=== PATIENT | female | born 1995 | race Caucasian/White ===

== ENCOUNTER 2017-08-28 13:33 | Emergency (ER) | payer MEDICAID ==
--- NOTE | 2017-08-28 13:56 | Emergency Department Record ---
History of Present Illness - General Chief complaint: Nausea, Vomiting, Diarrhea Stated complaint: NAUSEA/ PAIN IN RIGHT BREAST Time Seen by Provider: 08/28/17 13:41 Source: Patient, Family Mode of Arrival: Ambulatory Limitations: No limitations - History of Present Illness Initial comments: The patient is here due to having a 2 week hx of intermittent nausea. It comes and goes and sometimes is worse after eating. She has been also have pain in her R breast and has a cyst present. The cyst she feels is getting larger and now more painful. She has been taking a lot of Motrin for it also for the last 2 weeks. The patient was in the last month for this and was told to come to the ER if not better. MD complaint: Nausea Onset/Timin -: Week(s) Severity: Mild Severity scale (1-10): 3 Quality: Aching Improves with: None Worsens with: None Associated Symptoms: Nausea/vomiting - Related Data Previous Rx's Medication Instructions Recorded Metoclopramide HCl [Reglan] 10 mg PO TID #20 tablet 08/28/17 Naproxen [Naprosyn] 250 mg PO BID #14 tablet 08/28/17 Sucralfate [Carafate] 1 gm PO QID #28 tablet 08/28/17 Allergies Allergy/AdvReac Type Severity Reaction Status Date / Time No Known Allergies Allergy no Verified 08/28/17 13:44 allergies Travel Screening - Travel/Exposure Within Last 30 Days Have you traveled within the last 30 days?: No Review of Systems Constitutional: Denies: Chills, Fever Past Medical History - SOCIAL HISTORY Smoking Status: Never smoker Alcohol Use: None Drug Use: None - RESPIRATORY Hx Respiratory Disorders: No - CARDIOVASCULAR Hx Cardio Disorders: No - NEURO Hx Neuro Disorders: No - GI Hx GI Disorders: No - Hx Genitourinary Disorders: No - ENDOCRINE Hx Endocrine Disorders: No - MUSCULOSKELETAL Hx Musculoskeletal Disorders: No - PSYCH Hx Psych Problems: No - HEMATOLOGY/ONCOLOGY Hx Hematology/Oncology Disorders: No Family Medical History Any Significant Family History?: No Physical Exam - General General Appearance: Alert, Oriented x3, Cooperative, No acute distress - Head Head exam: Atraumatic, Normocephalic, Normal inspection - Eye Eye exam: Normal appearance, PERRL - Neck Neck exam: Normal inspection, Full ROM. negative: Tenderness - Respiratory Respiratory exam: Normal lung sounds bilaterally. negative: Respiratory distress - Cardiovascular Cardiovascular Exam: Regular rate, Normal rhythm, Normal heart sounds, Other ( There is a < 1 cm mildly tender nodule under the R nipple. There is no swelling , erythema, or edema appreciated.) - GI/Abdominal GI/Abdominal exam: Soft, Normal bowel sounds. negative: Rebound, Rigid, Tenderness - Extremities Extremities exam: Normal inspection, Full ROM, Normal capillary refill. negative: Tenderness Course Vital Signs 08/28/17 13:38 Temperature 98.4 F Pulse Rate [ 83 Pulse Ox Probe] Respiratory 15 Rate Blood Pressure 115/76 [Left Arm] Pulse Ox 98 - Reevaluation(s) Reevaluation #1: The patient is resting comfortably. She is declining any pain medicine at this time and states the nausea is presently gone. I did explain to her the lab work does appear WNL's and she is to F/U with her PCP next week for recheck. 08/28/17 14:43 Medical Decision Making - Lab Data Result diagrams: 08/28/17 14:03 08/28/17 14:03 Disposition Disposition: Discharge Clinical Impression: Nausea Disposition: Home, Self-Care Condition: (2) Stable Instructions: Acute Nausea and Vomiting (ED) Additional Instructions: Please take the Carafate with Naprosyn for pain and Reglan for nausea. Please see your PCP this week for recheck. Prescriptions: Metoclopramide HCl [Reglan] 10 mg PO TID #20 tablet Naproxen [Naprosyn] 250 mg PO BID #14 tablet Sucralfate [Carafate] 1 gm PO QID #28 tablet Forms: Patient Portal Access Time of Disposition: 14:43 Quality - Quality Measures Quality Measures: N/A - Blood Pressure Screening View Details: Yes Does Patient Have Any of the Following: No Blood Pressure Classification: Normal BP Reading Systolic Measurement: 115 Diastolic Measurement: 76 Screening for High Blood Pressure: < Normal BP, F/U Not Required > [G8783]
[2017-08-28 14:10] LABS: BASO % 0.3 % (0-6); EOS % 1.9 % (0-6); GRAN % 62.1 % (47-80); HEMATOCRIT 42.7 % (35.0-47.0); HEMOGLOBIN 14.9 gm/dl (11.6-16.0); LYMPH % 25.8 % (16-45); MEAN CELL VOLUME 82.6 fl (81-97); MEAN CORPUSCULAR HEMOGLOBIN 28.8 pg (27-33); MEAN CORPUSCULAR HGB CONC 34.9 g/dl (32-36); MEAN PLATELET VOLUME 11.1 fl (7.4-10.4); MONO % 9.9 % (0-9); PLATELET COUNT 217 K/uL (130-400); RED BLOOD COUNT 5.17 M/uL (3.80-5.40); RED CELL DISTRIBUTION WIDTH 13.2 % (11.5-14.5); WHITE BLOOD COUNT W/O DIFF 10.4 K/uL (4.2-12.2)
[2017-08-28 14:11] LABS: URINE APPEARANCE CLEAR; URINE BILIRUBIN NEGATIVE (NEGATIVE); URINE BLOOD NEGATIVE (NEGATIVE); URINE COLOR YELLOW; URINE GLUCOSE (UA) NEGATIVE (NEGATIVE); URINE KETONE NEGATIVE (NEGATIVE); URINE LEUKOCYTE ESTERASE NEGATIVE (NEGATIVE); URINE NITRITE NEGATIVE (NEGATIVE); URINE PROTEIN NEGATIVE (NEGATIVE); URINE UROBILINOGEN 0.2 E.U./dL (0.20 - 1.00)
[2017-08-28 14:21] LABS: BLOOD UREA NITROGEN 13 mg/dL (6-20); CREATININE 0.6 mg/dL (0.5-0.9); EST GLOMERULAR FILTRATION RATE > 60 mL/min
[2017-08-28 14:22] LABS: TOTAL PROTEIN 8.2 g/dL (6.6-8.7)
[2017-08-28 14:22] LABS: HCG,QUALITATIVE URINE NEGATIVE (NEGATIVE)
[2017-08-28 14:24] LABS: GLUCOSE,RANDOM 82 mg/dL (74-109)
[2017-08-28 14:27] LABS: ALB/GLOB RATIO 1.8 (1.1-1.8); ALBUMIN 5.3 g/dL (4.0-5.0); ALKALINE PHOSPHATASE 55 U/L (35-104); ALT/SGPT 11 U/L (<33); AST/SGOT 14 U/L (10.0-35.0)
== END 2017-08-28 14:50 | disposition home or self-care (01) ==
LOC: ER 13:33
DX: R11.2 Nausea with vomiting, unspecified (principal); R19.7 Diarrhea, unspecified
CPT/HCPCS: 80053; 81003; 81025; 85025; 99283

== ENCOUNTER 2018-10-24 08:11 | Emergency (ER) | payer MEDICAID ==
[2018-10-24] MEDS ORDERED: ONDANSETRON 4 MG ODT TABLET SL ONE (08:43)
--- NOTE | 2018-10-24 09:00 | Emergency Department Record ---
History of Present Illness - General Chief Complaint: Fever Stated Complaint: UNABLE TO EAT/FEVER Time Seen by Provider: 10/24/18 08:38 Source: Patient Mode of Arrival: Ambulatory Limitations: No limitations - History of Present Illness Initial Comments: The patient is here due to not feeling well for almost a week. She states she has been feeling feverish and has had intermittent nausea, vomiting and diarrhea. The patient denies any ST, MATHIS, AP, or dysuria. Her LMP is unknown due to being on the Depo shot recently. She also is feeling weak and having trouble concentrating at work. MD Complaint: Malaise, Weakness Onset/Timin -: Days(s) - Related Data Previous Rx's Medication Instructions Recorded Ondansetron [Zofran Odt] 4 mg SL .Q4-6H PRN #12 tab.rapdis 10/24/18 Allergies Allergy/AdvReac Type Severity Reaction Status Date / Time naproxen Allergy HIVES Verified 10/24/18 08:32 oral contraceptives AdvReac Severe SWELLING Uncoded 10/24/18 08:32 (GENERAL) Travel Screening - Travel/Exposure Within Last 30 Days Have you traveled within the last 30 days?: No - Travel/Exposure Within Last Year Have you traveled outside the [place] in the last year?: No - Additonal Travel Details Have you been exposed to anyone with a communicable illness?: No - Travel Symptoms Symptom Screening: None Review of Systems Constitutional: Reports: Fever, Malaise. Denies: Chills Eyes: Denies: Eye discharge ENT: Denies: Congestion Respiratory: Denies: Cough, Dyspnea Cardiovascular: Denies: Arrhythmia, Chest pain Endocrine: Denies: Fatigue Gastrointestinal: Reports: Diarrhea, Nausea, Vomiting. Denies: Abdominal pain Genitourinary: Denies: Discharge, Dysuria Musculoskeletal: Denies: Arthralgia Skin: Denies: Bruising Past Medical History - SOCIAL HISTORY Smoking Status: Light tobacco smoker (<10/day) Alcohol Use: Occasional Drug Use: None - RESPIRATORY Hx Respiratory Disorders: No - CARDIOVASCULAR Hx Cardio Disorders: No - NEURO Hx Neuro Disorders: No - GI Hx GI Disorders: No - Hx Genitourinary Disorders: No - ENDOCRINE Hx Endocrine Disorders: No - MUSCULOSKELETAL Hx Musculoskeletal Disorders: No - PSYCH Hx Psych Problems: No - HEMATOLOGY/ONCOLOGY Hx Hematology/Oncology Disorders: No Family Medical History Any Significant Family History?: Yes Physical Exam - General General Appearance: Alert, Oriented x3, Cooperative, No acute distress - Head Head exam: Atraumatic, Normocephalic, Normal inspection - Eye Eye exam: Normal appearance, PERRL, EOMI. negative: Conjunctival injection - ENT Throat exam: Normal inspection. negative: Tonsillar erythema, Tonsillar exudate - Neck Neck exam: Normal inspection, Full ROM. negative: Lymphadenopathy, Tenderness - Respiratory Respiratory exam: Normal lung sounds bilaterally. negative: Respiratory distress - Cardiovascular Cardiovascular Exam: Regular rate, Normal rhythm, Normal heart sounds - GI/Abdominal GI/Abdominal exam: Soft, Normal bowel sounds. negative: Rebound, Rigid, Tenderness (The abdomen is very soft and nontender.) - Extremities Extremities exam: Normal inspection, Full ROM, Normal capillary refill. negative: Tenderness - Neurological Neurological exam: Alert, Normal gait. negative: Abnormal gait, Motor sensory deficit - Skin Skin exam: negative: Rash Course Vital Signs 10/24/18 08:28 Temperature 98.3 F Pulse Rate 81 Respiratory 18 Rate Blood Pressure 115/83 Pulse Ox 100 - Reevaluation(s) Reevaluation #1: The patient is doing very well at this time. She has had no vomiting or diarrhea here in the ER and she appears very comfortable and stable. We will discharge the patient with Zofran and F/U with her PCP later this week. The patient has no abdominal pain or nausea presently and is keeping fluids down. 10/24/18 10:08 Medical Decision Making - Data Complexity MDM Data: Labs Ordered and/or Reviewed - Lab Data Result diagrams: 10/24/18 09:42 10/24/18 09:42 Disposition Disposition: Discharge Clinical Impression: Nausea & vomiting Qualifiers: Vomiting type: unspecified Vomiting Intractability: non-intractable Qualified Code(s): R11.2 - Nausea with vomiting, unspecified Disposition: Home, Self-Care Condition: (2) Stable Instructions: Acute Nausea and Vomiting (ED) Additional Instructions: Please take today off work and use the Zofran if needed for nausea. Please see your family doctor later this week for recheck if not better and return to the ER for any worsening symptoms. Prescriptions: Ondansetron [Zofran Odt] 4 mg SL .Q4-6H PRN #12 tab.rapdis PRN Reason: Nausea Forms: Patient Portal Access Time of Disposition: 10:10 Quality - Quality Measures Quality Measures: N/A - Blood Pressure Screening View Details: Yes Does Patient Have Any of the Following: No Blood Pressure Classification: Pre-Hypertensive BP Reading Systolic Measurement: 115 Diastolic Measurement: 83 Screening for High Blood Pressure: < Pre-Hypertensive BP, F/U Documented > [ G8950] Pre-Hypertensive Follow-up Interventions: Referral to alternative/primary care provider.
[2018-10-24 09:24] LABS: URINE APPEARANCE CLEAR; URINE BILIRUBIN NEGATIVE (NEGATIVE); URINE BLOOD NEGATIVE (NEGATIVE); URINE COLOR YELLOW; URINE GLUCOSE (UA) NEGATIVE (NEGATIVE); URINE KETONE NEGATIVE (NEGATIVE); URINE LEUKOCYTE ESTERASE TRACE (NEGATIVE); URINE NITRITE NEGATIVE (NEGATIVE); URINE PROTEIN NEGATIVE (NEGATIVE); URINE UROBILINOGEN 0.2 E.U./dL (0.20 - 1.00)
[2018-10-24 09:34] LABS: HCG,QUALITATIVE URINE NEGATIVE (NEGATIVE); URINE RBC NONE SEEN (NONE SEEN); URINE WBC 0 - 2 (0-2/hpf)
[2018-10-24 09:48] LABS: BASO % 0.6 % (0-6); EOS % 2.2 % (0-6); HEMATOCRIT 40.1 % (35.0-47.0); HEMOGLOBIN 13.5 gm/dl (11.6-16.0); LYMPH % 31.6 % (16-45); MEAN CELL VOLUME 84.1 fl (81-97); MEAN CORPUSCULAR HEMOGLOBIN 28.3 pg (27-33); MEAN CORPUSCULAR HGB CONC 33.7 g/dl (32-36); MEAN PLATELET VOLUME 10.7 fl (7.4-10.4); MONO % 9.6 % (0-9); PLATELET COUNT 195 K/uL (130-400); RED BLOOD COUNT 4.77 M/uL (3.80-5.40); RED CELL DISTRIBUTION WIDTH 13.1 % (11.5-14.5); WHITE BLOOD COUNT W/O DIFF 5.4 K/uL (4.2-12.2)
[2018-10-24 09:58] LABS: BLOOD UREA NITROGEN 7 mg/dL (6-20); CREATININE 0.6 mg/dL (0.5-0.9); EST GLOMERULAR FILTRATION RATE > 60 mL/min
[2018-10-24 09:59] LABS: TOTAL PROTEIN 7.4 g/dL (6.6-8.7)
[2018-10-24 10:01] LABS: GLUCOSE,RANDOM 92 mg/dL (74-109)
[2018-10-24 10:03] LABS: ALB/GLOB RATIO 1.8 (1.1-1.8); ALBUMIN 4.8 g/dL (4.0-5.0); ALT/SGPT 9 U/L (<33); AST/SGOT 12 U/L (10.0-35.0)
[2018-10-24 10:04] LABS: ALKALINE PHOSPHATASE 40 U/L (35-104)
== END 2018-10-24 10:19 | disposition home or self-care (01) ==
LOC: ER 08:11
DX: R11.2 Nausea with vomiting, unspecified (principal); R19.7 Diarrhea, unspecified; R53.1 Weakness; F17.210 Nicotine dependence, cigarettes, uncomplicated
CPT/HCPCS: 80053; 81001; 81025; 85025; 99283

== ENCOUNTER 2019-02-17 09:39 | Emergency (ER) | payer MEDICAID ==
[2019-02-17 10:51] LABS: URINE APPEARANCE CLEAR; URINE BILIRUBIN NEGATIVE (NEGATIVE); URINE BLOOD NEGATIVE (NEGATIVE); URINE COLOR YELLOW; URINE GLUCOSE (UA) NEGATIVE (NEGATIVE); URINE KETONE NEGATIVE (NEGATIVE); URINE LEUKOCYTE ESTERASE TRACE (NEGATIVE); URINE NITRITE NEGATIVE (NEGATIVE); URINE PROTEIN NEGATIVE (NEGATIVE); URINE UROBILINOGEN 0.2 E.U./dL (0.20 - 1.00)
[2019-02-17] MEDS ORDERED: 0.9 % SODIUM CHLORIDE 1,000 ML BAG IV ONE (10:52)
[2019-02-17] MEDS ORDERED: ONDANSETRON HCL IV 4 MG/2 ML VIAL IV ONE (10:52)
--- NOTE | 2019-02-17 10:55 | Emergency Department Record ---
History of Present Illness - General Chief Complaint: Abdominal Pain Stated Complaint: ABD PAIN Time Seen by Provider: 02/17/19 10:04 Source: Patient, RN notes reviewed Mode of Arrival: Ambulatory - History of Present Illness Initial Comments: epigastric abdominal pain and she has had a large workup of her GAllbladder with [place] the [place]. This episode started 3 days ago and also having diarrhea 10 times per day. She is vomiting after eating except for crackers. MD Complaint: Abdominal pain Onset/Timin -: Days(s) Location: Periumbilical Severity: Moderate Severity scale (1-10): 7 Quality: Aching, Cramping Improves With: Nothing Worsens With: Eating, Movement - Related Data LMP (females 10-50): Unknown Previous Rx's Medication Instructions Recorded Omeprazole 20 mg PO DAILY #30 [place]. 02/17/19 Ondansetron HCl [Zofran] 4 mg PO Q6HR PRN #14 tablet 02/17/19 Allergies Allergy/AdvReac Type Severity Reaction Status Date / Time naproxen Allergy HIVES Verified 02/17/19 09:48 oral contraceptives AdvReac Severe SWELLING Uncoded 02/17/19 09:48 (GENERAL) Travel Screening - Travel/Exposure Within Last 30 Days Have you traveled within the last 30 days?: No - Travel/Exposure Within Last Year Have you traveled outside the [place] in the last year?: No - Additonal Travel Details Have you been exposed to anyone with a communicable illness?: No - Travel Symptoms Symptom Screening: None Review of Systems Reviewed: No additional complaints except as noted below Constitutional: Reports: As per HPI. Denies: Chills, Fever, Malaise, Night sweats, Weakness, Weight change Eyes: Reports: As per HPI. Denies: Eye discharge, Eye pain, Photophobia, Vision change ENT: Reports: As per HPI. Denies: Congestion, Dental pain, Ear pain, Epistaxis, Hearing loss, Throat pain Respiratory: Reports: As per HPI. Denies: Cough, Dyspnea, Hemoptysis, Stridor, Wheezes Cardiovascular: Reports: As per HPI. Denies: Arrhythmia, Chest pain, Dyspnea on exertion, Edema, Murmurs, Orthopnea, Palpitations, Paroxysmal nocturnal dyspnea, Rheumatic Fever, Syncope Endocrine: Reports: As per HPI. Denies: Fatigue, Heat or cold intolerance, Polydipsia, Polyuria Gastrointestinal: Reports: As per HPI, Abdominal pain, Diarrhea, Vomiting. Denies: Constipation, Hematemesis, Hematochezia, Melena, Nausea Genitourinary: Reports: As per HPI. Denies: Abnormal menses, Discharge, Dyspareunia, Dysuria, Frequency, Hematuria, Incontinence, Retention, Urgency Musculoskeletal: Reports: As per HPI. Denies: Arthralgia, Back pain, Gout, Joint swelling, Myalgia, Neck pain Skin: Reports: As per HPI. Denies: Bruising, Change in color, Change in hair/nails, Lesions, Pruritus, Rash Neurological: Reports: As per HPI. Denies: Abnormal gait, Confusion, Headache, Numbness, Paresthesias, Seizure, Tingling, Tremors, Vertigo, Weakness Psychiatric: Reports: As per HPI. Denies: Anxiety, Auditory hallucinations, Depression, Homicidal thoughts, Suicidal thoughts, Visual hallucinations Hematological/Lymphatic: Reports: As per HPI. Denies: Anemia, Blood Clots, Easy bleeding, Easy bruising, Swollen glands Past Medical History - SOCIAL HISTORY Smoking Status: Light tobacco smoker (<10/day) Alcohol Use: None Drug Use: None - RESPIRATORY Hx Respiratory Disorders: No - CARDIOVASCULAR Hx Cardio Disorders: No - NEURO Hx Neuro Disorders: No - GI Hx GI Disorders: Yes Comment:: tanvir issues - Hx Genitourinary Disorders: No - ENDOCRINE Hx Endocrine Disorders: No - MUSCULOSKELETAL Hx Musculoskeletal Disorders: No - PSYCH Hx Psych Problems: No - HEMATOLOGY/ONCOLOGY Hx Hematology/Oncology Disorders: No Family Medical History Any Significant Family History?: Yes Physical Exam - General General Appearance: Alert, Oriented x3, Cooperative, No acute distress - Head Head exam: Normal inspection - Eye Eye exam: Normal appearance, PERRL Pupils: Normal accommodation - ENT ENT exam: Normal exam, Mucous membranes moist, Normal external ear exam, Normal orophraynx, TM's normal bilaterally Ear exam: Normal external inspection. negative: External canal tenderness Nasal Exam: Normal inspection. negative: Discharge, Sinus tenderness Mouth exam: Normal external inspection, Tongue normal Teeth exam: Normal inspection. negative: Dental caries Throat exam: Normal inspection. negative: Tonsillar erythema, Tonsillar exudate - Neck Neck exam: Normal inspection, Full ROM. negative: Tenderness - Respiratory Respiratory exam: Normal lung sounds bilaterally. negative: Respiratory distress - Cardiovascular Cardiovascular Exam: Regular rate, Normal rhythm, Normal heart sounds - GI/Abdominal GI/Abdominal exam: Soft, Normal bowel sounds, Tenderness (epigastric abdominal pain) - Rectal Rectal exam: Deferred - exam: Deferred - Extremities Extremities exam: Normal inspection, Full ROM, Normal capillary refill. negative: Tenderness - Back Back exam: Reports: Normal inspection, Full ROM. Denies: Muscle spasm, Rash noted, Tenderness - Neurological Neurological exam: Alert, Normal gait, Oriented X3, Reflexes normal - Psychiatric Psychiatric exam: Normal affect, Normal mood - Skin Skin exam: Dry, Intact, Normal color, Warm Course Vital Signs 02/17/19 09:42 Temperature 97.8 F Pulse Rate 92 H Respiratory 16 Rate Blood Pressure 119/82 Pulse Ox 100 - Reevaluation(s) Reevaluation #1: feeling better 02/17/19 12:46 Reevaluation #2: patient is feeling better 02/17/19 12:49 Medical Decision Making - Lab Data Result diagrams: 02/17/19 11:05 02/17/19 11:05 Disposition Clinical Impression: Abdominal pain Qualifiers: Abdominal location: upper abdomen, unspecified Qualified Code(s): R10.10 - Upper abdominal pain, unspecified Gastritis Qualifiers: Gastritis type: superficial Chronicity: acute Gastritis bleeding: without bleeding Qualified Code(s): K29.00 - Acute gastritis without bleeding Disposition: Home, Self-Care Condition: (1) Good Instructions: Gastritis (ED) Additional Instructions: follow up with primary Dr in one week [facility] one table spoon after meals and bedtime Prescriptions: Ondansetron HCl [Zofran] 4 mg PO Q6HR PRN #14 tablet PRN Reason: Gi Upset Omeprazole 20 mg PO DAILY #30 cap.dr Forms: Patient Portal Access Time of Disposition: 12:49 Quality - Quality Measures Quality Measures: N/A - Blood Pressure Screening Does Patient Have Any of the Following: No Blood Pressure Classification: Pre-Hypertensive BP Reading Systolic Measurement: 119 Diastolic Measurement: 82 Screening for High Blood Pressure: < Pre-Hypertensive BP, F/U Documented > [G8950] Pre-Hypertensive Follow-up Interventions: Referral to alternative/primary care provider.
[2019-02-17 11:00] LABS: HCG,QUALITATIVE URINE NEGATIVE (NEGATIVE); URINE MUCUS LIGHT; URINE RBC NONE SEEN (NONE SEEN); URINE WBC 0 - 2 (0-2/hpf)
[2019-02-17 11:11] LABS: ABSOLUTE NEUTROPHIL COUNT 4.91; BASO % 0.3 % (0-6); EOS % 2.3 % (0-6); GRAN % 66.4 % (47-80); HEMATOCRIT 40.5 % (35.0-47.0); HEMOGLOBIN 13.3 gm/dl (11.6-16.0); LYMPH % 23.4 % (16-45); MEAN CELL VOLUME 87.3 fl (81-97); MEAN CORPUSCULAR HEMOGLOBIN 28.7 pg (27-33); MEAN CORPUSCULAR HGB CONC 32.8 g/dl (32-36); MEAN PLATELET VOLUME 10.9 fl (7.4-10.4); MONO % 7.6 % (0-9); PLATELET COUNT 203 K/uL (130-400); RED BLOOD COUNT 4.64 M/uL (3.80-5.40); RED CELL DISTRIBUTION WIDTH 12.7 % (11.5-14.5); WHITE BLOOD COUNT W/O DIFF 7.4 K/uL (4.2-12.2)
[2019-02-17 11:21] LABS: BLOOD UREA NITROGEN 12 mg/dL (6-20); CREATININE 0.6 mg/dL (0.5-0.9); EST GLOMERULAR FILTRATION RATE > 60 mL/min
[2019-02-17 11:22] LABS: LIPASE 25 U/L (13-60)
[2019-02-17 11:23] LABS: GLUCOSE,RANDOM 86 mg/dL (74-109)
[2019-02-17 11:26] LABS: ALBUMIN 4.7 g/dL (4.0-5.0); ALKALINE PHOSPHATASE 44 U/L (35-104); ALT/SGPT 33 U/L (<33); AST/SGOT 24 U/L (10.0-35.0)
[2019-02-17 11:28] LABS: BILIRUBIN,DIRECT < 0.2 mg/dL (0-0.3)
[2019-02-17] MEDS ORDERED: AL HYDROX/MAG HYDROX 30ML UD PO ONE (12:41)
== END 2019-02-17 13:06 | disposition home or self-care (01) ==
LOC: ER 09:39
DX: K29.00 Acute gastritis without bleeding (principal); R10.31 Right lower quadrant pain; R11.10 Vomiting, unspecified; R19.7 Diarrhea, unspecified; F17.210 Nicotine dependence, cigarettes, uncomplicated
CPT/HCPCS: 99284 ×2; 96374; 96361; 83690; 85025; 80076; 80048; 81001; 81025; J2405; J7030

== ENCOUNTER 2019-08-06 10:59 | Emergency (ER) | payer MEDICAID ==
--- NOTE | 2019-08-06 11:26 | Emergency Department Record ---
History of Present Illness - General Chief Complaint: Cough Stated Complaint: COUGH/SORE THROAT Time Seen by Provider: 08/06/19 11:16 Source: Patient, RN notes reviewed Mode of Arrival: Ambulatory - History of Present Illness MD Complaint: Cough Onset/Timin -: Days(s) Severity scale (1-10): 8 - Related Data Allergies Allergy/AdvReac Type Severity Reaction Status Date / Time naproxen Allergy HIVES Unverified 07/05/19 10:46 ondansetron [From Zofran] Allergy HIVES Verified 08/06/19 11:07 oral contraceptives AdvReac Severe SWELLING Uncoded 02/17/19 09:48 (GENERAL) Travel Screening - Travel/Exposure Within Last 30 Days Have you traveled within the last 30 days?: Yes Location Detail:: [place] - Travel/Exposure Within Last Year Have you traveled outside the [place] in the last year?: No - Additonal Travel Details Have you been exposed to anyone with a communicable illness?: No - Travel Symptoms Symptom Screening: None Review of Systems Reviewed: No additional complaints except as noted below Constitutional: Reports: As per HPI. Denies: Chills, Fever, Malaise, Night sweats, Weakness, Weight change Eyes: Reports: As per HPI. Denies: Eye discharge, Eye pain, Photophobia, Vision change ENT: Reports: As per HPI, Congestion, Throat pain. Denies: Dental pain, Ear pain, Epistaxis, Hearing loss Respiratory: Reports: As per HPI, Cough. Denies: Dyspnea, Hemoptysis, Stridor, Wheezes Cardiovascular: Reports: As per HPI. Denies: Arrhythmia, Chest pain, Dyspnea on exertion, Edema, Murmurs, Orthopnea, Palpitations, Paroxysmal nocturnal dyspnea, Rheumatic Fever, Syncope Endocrine: Reports: As per HPI. Denies: Fatigue, Heat or cold intolerance, Polydipsia, Polyuria Gastrointestinal: Reports: As per HPI. Denies: Abdominal pain, Constipation, Diarrhea, Hematemesis, Hematochezia, Melena, Nausea, Vomiting Genitourinary: Reports: As per HPI. Denies: Abnormal menses, Discharge, Dyspareunia, Dysuria, Frequency, Hematuria, Incontinence, Retention, Urgency Musculoskeletal: Reports: As per HPI. Denies: Arthralgia, Back pain, Gout, Joint swelling, Myalgia, Neck pain Skin: Reports: As per HPI. Denies: Bruising, Change in color, Change in hair/nails, Lesions, Pruritus, Rash Neurological: Reports: As per HPI. Denies: Abnormal gait, Confusion, Headache, Numbness, Paresthesias, Seizure, Tingling, Tremors, Vertigo, Weakness Psychiatric: Reports: As per HPI. Denies: Anxiety, Auditory hallucinations, Depression, Homicidal thoughts, Suicidal thoughts, Visual hallucinations Hematological/Lymphatic: Reports: As per HPI. Denies: Anemia, Blood Clots, Easy bleeding, Easy bruising, Swollen glands Past Medical History - SOCIAL HISTORY Smoking Status: Light tobacco smoker (<10/day) Alcohol Use: Rare Drug Use: None - RESPIRATORY Hx Respiratory Disorders: No - CARDIOVASCULAR Hx Cardio Disorders: No - NEURO Hx Neuro Disorders: No - GI Hx GI Disorders: Yes Comment:: tanvir issues, gastritis - Hx Genitourinary Disorders: Yes Comment:: endometriosis - ENDOCRINE Hx Endocrine Disorders: No - MUSCULOSKELETAL Hx Musculoskeletal Disorders: No - PSYCH Hx Psych Problems: No - HEMATOLOGY/ONCOLOGY Hx Hematology/Oncology Disorders: No Family Medical History Any Significant Family History?: Yes Physical Exam - General General Appearance: Alert, Oriented x3, Cooperative, No acute distress - Head Head exam: Normal inspection - Eye Eye exam: Normal appearance, PERRL Pupils: Normal accommodation - ENT ENT exam: Normal exam, Mucous membranes moist, Normal external ear exam, Normal orophraynx, TM's normal bilaterally Ear exam: Normal external inspection. negative: External canal tenderness Nasal Exam: Normal inspection. negative: Discharge, Sinus tenderness Mouth exam: Normal external inspection, Tongue normal Teeth exam: Normal inspection. negative: Dental caries Throat exam: Normal inspection. negative: Tonsillar erythema, Tonsillar exudate - Neck Neck exam: Normal inspection, Full ROM. negative: Tenderness - Respiratory Respiratory exam: Normal lung sounds bilaterally. negative: Respiratory distress - Cardiovascular Cardiovascular Exam: Regular rate, Normal rhythm, Normal heart sounds - GI/Abdominal GI/Abdominal exam: Soft, Normal bowel sounds. negative: Tenderness - Rectal Rectal exam: Deferred - exam: Deferred - Extremities Extremities exam: Normal inspection, Full ROM, Normal capillary refill. negative: Tenderness - Back Back exam: Reports: Normal inspection, Full ROM. Denies: Muscle spasm, Rash noted, Tenderness - Neurological Neurological exam: Alert, Normal gait, Oriented X3, Reflexes normal - Psychiatric Psychiatric exam: Normal affect, Normal mood - Skin Skin exam: Dry, Intact, Normal color, Warm Course Vital Signs 08/06/19 11:00 Temperature 98.7 F Pulse Rate 108 H Respiratory 18 Rate Blood Pressure 118/81 Pulse Ox 97 Disposition Clinical Impression: Viral syndrome Disposition: Home, Self-Care Condition: (1) Good Instructions: Cold Symptoms (ED) Additional Instructions: follow up with family DR chanucey shepard cough syrup 10 ml every 4 hours Forms: Patient Portal Access Time of Disposition: 11:48 Quality - Quality Measures Quality Measures: N/A - Blood Pressure Screening Does Patient Have Any of the Following: No Blood Pressure Classification: Pre-Hypertensive BP Reading Systolic Measurement: 118 Diastolic Measurement: 81 Screening for High Blood Pressure: < Pre-Hypertensive BP, F/U Documented > [G8950] Pre-Hypertensive Follow-up Interventions: Follow-up with rescreen every year.
[2019-08-06 11:37] LABS: INFLUENZA A NEGATIVE (NEGATIVE); INFLUENZA B NEGATIVE (NEGATIVE); STREP A SCREEN NEGATIVE (NEGATIVE)
== END 2019-08-06 12:00 | disposition home or self-care (01) ==
LOC: ER 10:59
DX: B34.9 Viral infection, unspecified (principal); R05 Cough; F17.210 Nicotine dependence, cigarettes, uncomplicated
CPT/HCPCS: 87400; 87880; 99282